=== PATIENT | female | born 1990 | race Caucasian/White ===

== ENCOUNTER 2019-06-22 11:55 | Inpatient (IN) | payer MEDICAID, OTHER ==
[2019-06-22] MEDS ORDERED: Misoprostol 400 MCG (4 X 100 MCG TAB) RECTAL PRN (12:53)
[2019-06-22] MEDS ORDERED: Lidocaine 1% 30 ML SDV INJECT PRN (12:53)
[2019-06-22] MEDS ORDERED: Carboprost Tromethamine 250 MCG/1 ML Amp IM PRN (12:53)
[2019-06-22] MEDS ORDERED: Lactated Ringers 1,000 ML IV ONE (12:53)
[2019-06-22] MEDS ORDERED: Methylergonovine 0.2 MG/1 ML Amp IM PRN (12:53)
[2019-06-22] MEDS ORDERED: Tranexamic Acid 1,000 MG in Sodium Chloride 0.9% 100 ML IV PRN (12:53)
[2019-06-22] MEDS ORDERED: Sodium Chloride 0.9% 10 ML Syringe FLUSH PRN (12:53)
[2019-06-22] MEDS ORDERED: Ondansetron 4 MG/2 ML SDV IVPUSH PRN (12:53)
--- NOTE | 2019-06-22 13:03 | PCM.LDHP ---
L&D History of Present Illness - General Date of Service: 06/22/19 (Admit) Admit Problem/Dx: Patient Status Order with Admit Dx/Problem 06/22/19 12:53 Patient Status [ADT] Routine Admission Diagnosis/Problem Admission Diagnosis/Problem Labor established Source of Information: Patient, Old Records, Significant Other History Limitations: Reports: No Limitations - History of Present Illness Introduction:: Maggie is 28yo with very late OB care with first visit in third trimester. She is term and approx 40w5d by best estimate. First visit at approx 34 weeks. initial US at that time showed limb measurements lagging behind head and abdomen by 5-6 weeks, confirmed by MFM consult, etiology unclear, and making due date difficult to determine accurately. follow up growth US 3 weeks later showed same. risks and dx during this include: B+ blood type, Hx PP hemorrhage, Hx vacuum assisted delivery, smoker, UTI during , rubella non-immune, anemia, hypothyroidism not treated until third trimester, Hx RAD, short limbs as noted, late care, concern re: possible substance use though UDS done at our facility were negative. see EPIC notes, episode, problem list and notes for details. hmb Timing/Duration: Reports: minutes: (2-4), getting worse Location, : Reports: Uterus Severity: Moderate - Related Data Allergies/Adverse Reactions: Allergies Allergy/AdvReac Type Severity Reaction Status Date / Time No Known Allergies Allergy Verified 06/22/19 13:00 Home Medications: Home Meds Acetaminophen [Tylenol] 650 mg PO Q4H PRN #30 tablet 04/04/13 [Rx] Ferrous Sulfate 325 mg PO BIDM #60 tablet 04/04/13 [Rx] Vit with Ca/FA/Iron [ Plus Iron] 1 each PO DAILY 365 Days tablet 04/04/13 [Rx] Past Medical History HEENT History: Reports: None Cardiovascular History: Reports: None Respiratory History: Reports: None, Other (See Below) (noted hx of RAD in EPIC chart.) Gastrointestinal History: Reports: None Genitourinary History: Reports: UTI, Recurrent, Other (See Below) Other Genitourinary History: BV COBOL DEVELOPER History: Reports: : 2 Para: 1 LMP (Approximate): Other OB/BYN History: prior hemorrhage, VAVD Musculoskeletal History: Reports: None Neurological History: Reports: None Psychiatric History: Reports: Other (See Below) Other Psychiatric History: hx cutting, hx THC use Endocrine/Metabolic History: Reports: Hypothyroidism Hematologic History: Reports: Anemia Immunologic History: Reports: None Oncologic (Cancer) History: Reports: None Dermatologic History: Reports: None - Infectious Disease History Infectious Disease History: Reports: None - Past Surgical History Head Surgeries/Procedures: Reports: None Social & Family History - Family History Family Medical History: Noncontributory - Tobacco Use Smoking Status *Q: Light Tobacco Smoker Years of Tobacco use: 10 Packs/Tins Daily: 0.5 - Caffeine Use Caffeine Use: Reports: Coffee - Recreational Drug Use Recreational Drug Use: No - Living Situation & Occupation Living situation: Reports: with Significant Other Social History Comment: significant other is Kamaljit Lambert/SHAWN. He has 6 other children, not with her. H&P Review of Systems - Review of Systems: Review Of Systems: Comprehensive ROS is negative, except as noted in HPI. L&D Exam - Exam Exam: See Below - Vital Signs Vital Signs: as noted on graphic in [employer]/WNL Weight: 227 lb (clinic this week) - OB Specific Contraction Frequency (min): 2-4 Contraction Intensity: Moderate Heart Rate (FHR) Variability: Moderate (6-25 bmp) Presentation: Left Occiput Anterior (NAILA) - Gregorio Score Gregorio Score Cervix Position: Posterior Gregorio Score Consistency: Soft Gregorio Score Effacement: 51-70% Gregorio Score Dilation: 3-4 cm Gregorio Score Infant's Station: -2 Gregorio Score Total: 7 - Exam General: Alert, Oriented HEENT: Conjunctiva Clear, EOMI, Hearing Intact, Mucosa Moist & [place], Nares Patent, PERRLA Neck: Supple, Trachea Midline Lungs: Clear to Auscultation, Normal Respiratory Effort Cardiovascular: Regular Rate, Regular Rhythm GI/Abdominal Exam: Normal Bowel Sounds, Soft, Non-Tender Rectal Exam: Normal Exam Genitourinary: Normal external exam, Normal bimanual exam, Cervical fluid ( clear with AROM) Back Exam: Normal Inspection, Full Range of Motion Extremities: Normal Inspection, Normal Range of Motion, Non-Tender, No Pedal Edema, Normal Capillary Refill Skin: Warm, Dry, Intact Neurological: Normal Speech Psychiatric: Alert, Normal Affect, Normal Mood - Patient Data Lab Results Last 24 hrs: COVID rapid screen negative UDS +THC Result Diagrams: 06/22/19 15:28 - Problem List (1) Term SNOMED Code(s): 25851199 ICD Code: Z34.90 - ENCNTR FOR SUPRVSN OF NORMAL , UNSP, UNSP TRIMESTER Status: Acute Current Visit: Yes (2) High risk , antepartum SNOMED Code(s): 45134492 ICD Code: O09.90 - SUPERVISION OF HIGH RISK , UNSP, UNSP TRIMESTER Status: Acute Current Visit: Yes (3) , high-risk, obstetrical care insufficient SNOMED Code(s): 2599715064306 ICD Code: O09.30 - SUPRVSN OF PREG W INSUFFICIENT ANTENAT CARE, UNSP TRIMESTER Status: Acute Current Visit: Yes (4) Blood type B+ SNOMED Code(s): 767912557 ICD Code: Z67.20 - TYPE B BLOOD, RH POSITIVE Status: Acute Current Visit : Yes (5) Late care affecting in third trimester SNOMED Code(s): 108102736, 127990378, 953037205 ICD Code: O09.33 - SUPRVSN OF PREG W INSUFFICIENT ANTENAT CARE, THIRD TRIMESTER Status: Acute Current Visit: Yes (6) abnormality suspected, antepartum condition SNOMED Code(s): 243962882, 721763067, 545558114 ICD Code: O35.9XX0 - MATERNAL CARE FOR ABNORMALITY AND DAMAGE, UNSP, UNSP Status: Acute Current Visit: Yes (7) Hypothyroid in , antepartum SNOMED Code(s): 193488404 ICD Code: O99.280 - ENDO, NUTRITIONAL AND METAB DISEASES COMP PREG, UNSP TRI ; E03.9 - HYPOTHYROIDISM, UNSPECIFIED Status: Acute Current Visit: Yes (8) History of hemorrhage, currently SNOMED Code(s): 832744919, 943538750 ICD Code: O09.299 - SUPRVSN OF PREG W POOR REPRODCTV OR OBSTET HISTORY, UNSP TRI Status: Acute Current Visit: Yes (9) H/O delivery by vacuum extraction, currently SNOMED Code(s): 687248341, 093423600 ICD Code: O09.299 - SUPRVSN OF PREG W POOR REPRODCTV OR OBSTET HISTORY, UNSP TRI Status: Acute Current Visit: Yes (10) Anemia of SNOMED Code(s): 63900387 ICD Code: O99.019 - ANEMIA COMPLICATING , UNSPECIFIED TRIMESTER Status: Acute Current Visit: No Problem Details: Hgb 10.1 on admission. (11) Rubella non-immune SNOMED Code(s): 397466001 ICD Code: Z78.9 - OTHER SPECIFIED HEALTH STATUS Status: Acute Current Visit: No (12) Smoker SNOMED Code(s): 60986129 ICD Code: F17.200 - NICOTINE DEPENDENCE, UNSPECIFIED, UNCOMPLICATED Status : Acute Current Visit: No (13) Unplanned SNOMED Code(s): 13727497 ICD Code: Z33.1 - STATE, INCIDENTAL Status: Acute Current Visit : No Problem List Initiated/Reviewed/Updated: Yes Orders Last 24hrs: Active Orders 24 hr Category Date Time Status Patient Status [ADT] Routine ADT 06/22/19 12:53 Ordered Communication Order [RC] ASDIRECTED Care 06/22/19 12:53 Ordered Heart Tones [RC] PER UNIT ROUTINE Care 06/22/19 12:53 Ordered Non Stress Test [RC] PER UNIT ROUTINE Care 06/22/19 12:55 Ordered Notify Provider Vital Signs OB [RC] ASDIRECTED Care 06/22/19 12:53 Ordered Notify Provider [RC] PRN Care 06/22/19 12:53 Ordered Pump Management, Intrathecal [RC] ASDIRECTED Care 06/22/19 12:55 Ordered Up ad [place] [RC] ASDIRECTED Care 06/22/19 12:53 Ordered Vital Signs [RC] PER UNIT ROUTINE Care 06/22/19 12:53 Ordered CBC W/O DIFF,HEMOGRAM [HEME] Routine Lab 06/22/19 12:53 Ordered CORONAVIRUS COVID-19 RAPID PCR [MOLEC] Stat Lab 06/22/19 12:15 Received Acetaminophen [Tylenol] Med 06/22/19 12:53 Ordered 650 mg PO Q4H PRN Carboprost Tromethamine [Hemabate DS] Med 06/22/19 12:53 Ordered 250 mcg IM ASDIRECTED PRN Lactated Ringers @ 125 MLS/HR(1000ml) Med 06/22/19 13:00 Ordered Lactated Ringers [Ringers, Lactated] 1,000 ml IV ASDIRECTED Lactated Ringers [Ringers, Lactated] 1,000 ml Med 06/22/19 12:53 Ordered IV BOLUS Lidocaine 1% [Xylocaine-MPF 1%] Med 06/22/19 12:53 Ordered 30 ml INJECT ASDIRECTED PRN Methylergonovine [Methergine] Med 06/22/19 12:53 Ordered 0.2 mg IM ASDIRECTED PRN Ondansetron [Zofran] Med 06/22/19 12:53 Ordered 4 mg IVPUSH Q4H PRN Oxytocin 30 Units in NS @ 2 MUNITS/MIN(500ml) Med 06/22/19 13:00 Ordered Oxytocin/Normal Saline [Pitocin in NS 30 UNIT/500 ML] 30 unit in 500 ml IV TITRATE Sodium Chloride 0.9% [Saline Flush] Med 06/22/19 12:53 Ordered 10 ml FLUSH ASDIRECTED PRN Tranexamic Acid [Cyklokapron] 1,000 mg Med 06/22/19 12:53 Ordered Sodium Chloride 0.9% [Normal Saline] 100 ml IV ONETIME miSOPROStoL [Cytotec] Med 06/22/19 12:53 Ordered 800 mcg RECTAL ASDIRECTED PRN Saline Lock Insert [OM.PC] Routine Oth 06/22/19 12:53 Ordered Resuscitation Status Routine Resus Stat 06/22/19 12:53 Ordered Medication Orders Acetaminophen (Tylenol) 650 mg PO Q4H PRN PRN Reason: Pain (Mild 1-3) and fever Carboprost Tromethamine (Hemabate Ds) 250 mcg IM ASDIRECTED PRN PRN Reason: HEMORRHAGE Lactated Ringer's (Ringers, Lactated) 1,000 mls @ 500 mls/hr IV BOLUS ONE Stop: 06/22/19 14:52 Lactated Ringer's (Ringers, Lactated) 1,000 mls @ 125 mls/hr IV ASDIRECTED LUZ MARINA Oxytocin/Sodium Chloride (Pitocin In Ns 30 Unit/500 Ml) 30 unit in 500 mls @ 2 mls/hr IV TITRATE LUZ MARINA; Protocol Tranexamic Acid 1,000 mg/ (Sodium Chloride) 110 mls @ 660 mls/hr IV ONETIME PRN PRN Reason: Bleeding Lidocaine HCl (Xylocaine-Mpf 1%) 30 ml INJECT ASDIRECTED PRN PRN Reason: Perineal Repair Methylergonovine Maleate (Methergine) 0.2 mg IM ASDIRECTED PRN PRN Reason: Hemorrhage Misoprostol (Cytotec) 800 mcg RECTAL ASDIRECTED PRN PRN Reason: Hemorrhage Ondansetron HCl (Zofran) 4 mg IVPUSH Q4H PRN PRN Reason: Nausea/Vomiting Sodium Chloride (Saline Flush) 10 ml FLUSH ASDIRECTED PRN PRN Reason: Keep Vein Open Assessment/Plan Comment:: Assessment" 28yo @ 40w5d by late dates contractions/labor high risk late and insufficient care suspect abnormality (short limbs confirmed by MFM) etiology unclear Hx PPH Hx VAVD smoker, concern re: possible substance use antenatally Blood type B+ rubella non-immune maternal anemia Hypothryoidism, untreated until third trimester distant Hx RAD ASCUS +HPV---needs colpo as did not have during due to late care. NST reactive. early labor Plan: admit with routine orders rapid COVID testing CBC continue to monitor. consider AROM when able. further management pending her clinical course is labor. UDS. cord/mec testing for baby. hmb Addendum: Hgb 10.1, COVID negative, UDS +THC hmb
[2019-06-22] MEDS: Lactated Ringers 1,000 ML IV SCH ×2 (17:31→20:46)
[2019-06-22] MEDS: Oxytocin/Normal Saline 30 UNIT/500 ML BAG IV SCH (17:32)
[2019-06-22] MEDS ORDERED: Sodium Chloride 0.9% 10 ML Syringe ONE (20:42)
[2019-06-22] MEDS ORDERED: EPINEPHrine 1 MG/1 ML Amp ONE ×2 (20:42)
--- NOTE | 2019-06-22 21:05 | PCM.PREANE ---
Preanesthetic Assessment - Procedure Proposed Procedure: Intrathecal injection for labor analgesia - Anesthesia/Transfusion/Family Hx Anesthesia History: Prior Anesthesia Without Reaction Family History of Anesthesia Reaction: No Transfusion History: No Prior Transfusion(s) - Physical Assessment NPO Status Date: 06/22/19 NPO Status Time: 10:00 Vital Signs: Last Vital Signs Temp 98.4 F 06/22/19 19:30 Pulse 90 06/22/19 20:15 Resp 20 06/22/19 18:24 BP 110/77 06/22/19 20:15 Pulse Ox Height: 5 ft 6 in Weight: 227 lb (clinic this week) ASA Class: 2E Airway Class: Mallampati = 2 ( IUP) - Lab Values: Laboratory Last Values WBC 14.2 10^3/uL (5.0-10.0) H 06/22/19 15:28 RBC 3.62 10^6/uL (4.2-5.4) L 06/22/19 15:28 Hgb 10.1 g/dL (12.0-16.0) L D 06/22/19 15:28 Hct 32.0 % (37.0-47.0) L 06/22/19 15:28 MCV 88.4 fL (80-100) D 06/22/19 15:28 MCH 27.9 pg (27.0-34.0) 06/22/19 15:28 MCHC 31.6 g/dL (33.0-35.0) L 06/22/19 15:28 Plt Count 230 10^3/uL (150-450) 06/22/19 15:28 Urine Opiates Screen Negative (NEGATIVE) 06/22/19 15:59 Ur Oxycodone Screen Negative (NEGATIVE) 06/22/19 15:59 Urine Methadone Screen Negative (NEGATIVE) 06/22/19 15:59 Ur Barbiturates Screen Negative (NEGATIVE) 06/22/19 15:59 U Tricyclic Antidepress Negative (NEGATIVE) 06/22/19 15:59 Ur Phencyclidine Scrn Negative (NEGATIVE) 06/22/19 15:59 Ur Amphetamine Screen Negative (NEGATIVE) 06/22/19 15:59 U Methamphetamines Scrn Negative (NEGATIVE) 06/22/19 15:59 Urine MDMA Screen Negative (NEGATIVE) 06/22/19 15:59 U Benzodiazepines Scrn Negative (NEGATIVE) 06/22/19 15:59 Urine Cocaine Screen Negative (NEGATIVE) 06/22/19 15:59 U Marijuana (THC) Screen Positive (NEGATIVE) H 06/22/19 15:59 SARS-CoV-2 RNA (RT-PCR) Negative (NEGATIVE) 06/22/19 12:15 - Allergies Allergies/Adverse Reactions: Allergies Allergy/AdvReac Type Severity Reaction Status Date / Time No Known Allergies Allergy Verified 06/22/19 13:00 PreAnesthesia Questionnaire HEENT History: Reports: None Cardiovascular History: Reports: None Respiratory History: Reports: None, Other (See Below) (noted hx of RAD in EPIC chart.) Gastrointestinal History: Reports: None Genitourinary History: Reports: UTI, Recurrent, Other (See Below) Other Genitourinary History: BV DAYCARE PROVIDER History: Reports: Other OB/BYN History: prior hemorrhage, VAVD Musculoskeletal History: Reports: None Neurological History: Reports: None Psychiatric History: Reports: Other (See Below) Other Psychiatric History: hx cutting, hx THC use Endocrine/Metabolic History: Reports: Hypothyroidism Hematologic History: Reports: Anemia Immunologic History: Reports: None Oncologic (Cancer) History: Reports: None Dermatologic History: Reports: None - Infectious Disease History Infectious Disease History: Reports: None - Past Surgical History Head Surgeries/Procedures: Reports: None - SUBSTANCE USE Smoking Status *Q: Light Tobacco Smoker Tobacco Use Within Last Twelve Months: Cigarettes Recreational Drug Use History: No - HOME MEDS Home Medications: Home Meds Acetaminophen [Tylenol] 650 mg PO Q4H PRN #30 tablet 04/04/13 [Rx] Ferrous Sulfate 325 mg PO BIDM #60 tablet 04/04/13 [Rx] Vit with Ca/FA/Iron [ Plus Iron] 1 each PO DAILY 365 Days tablet 04/04/13 [Rx] - CURRENT (IN HOUSE) MEDS Current Meds: Current Medications Acetaminophen (Tylenol) 650 mg PO Q4H PRN PRN Reason: Pain (Mild 1-3) and fever Carboprost Tromethamine (Hemabate Ds) 250 mcg IM ASDIRECTED PRN PRN Reason: HEMORRHAGE Lactated Ringer's (Ringers, Lactated) 1,000 mls @ 125 mls/hr IV ASDIRECTED LUZ MARINA Last Admin: 06/22/19 20:46 Dose: 125 mls/hr Oxytocin/Sodium Chloride (Pitocin In Ns 30 Unit/500 Ml) 30 unit in 500 mls @ 2 mls/hr IV TITRATE LUZ MARINA; Protocol Last Titration: 06/22/19 20:20 Dose: 12 munits/min, 12 mls/hr Tranexamic Acid 1,000 mg/ (Sodium Chloride) 110 mls @ 660 mls/hr IV ONETIME PRN PRN Reason: Bleeding Lidocaine HCl (Xylocaine-Mpf 1%) 30 ml INJECT ASDIRECTED PRN PRN Reason: Perineal Repair Methylergonovine Maleate (Methergine) 0.2 mg IM ASDIRECTED PRN PRN Reason: Hemorrhage Misoprostol (Cytotec) 800 mcg RECTAL ASDIRECTED PRN PRN Reason: Hemorrhage Ondansetron HCl (Zofran) 4 mg IVPUSH Q4H PRN PRN Reason: Nausea/Vomiting Last Admin: 06/22/19 20:28 Dose: 4 mg Sodium Chloride (Saline Flush) 10 ml FLUSH ASDIRECTED PRN PRN Reason: Keep Vein Open Discontinued Medications Epinephrine HCl (Adrenalin) Confirm Administered Dose 1 mg .ROUTE .STK-MED ONE Stop: 06/22/19 20:43 Lactated Ringer's (Ringers, Lactated) 1,000 mls @ 500 mls/hr IV BOLUS ONE Stop: 06/22/19 14:52 Sufentanil Citrate (Sufenta) Confirm Administered Dose 50 mcg .ROUTE .STK-MED ONE Stop: 06/22/19 20:42
--- NOTE | 2019-06-22 21:10 | PCM.PRNOTE ---
- Free Text/Narrative Note: IT injection. Pt id. Chart reviewed. Pre anesthesia eval completed. Sitting position. VSS standard prep and drape with betadine. Lidocaine 1% skin wheal. L3/4 24ga. +csf - heme - parathesia 0.75% marcaine 0.8mL 20mcg sufenta 0.1 mL epi 0.6mL 0.9% NS Patient tolerated well. All needles accounted for. VS (post) 141/94 HR 101 FHR 122 In room 2044. Time out 2047 Procedure complete 2055
[2019-06-23] MEDS ORDERED: Benzocaine/Menthol 20%-0.5% Spray 56 GM Canister TOP PRN (01:03)
[2019-06-23] MEDS ORDERED: Simethicone 80 MG Tab.Chew PO PRN (01:03)
[2019-06-23] MEDS ORDERED: Zolpidem 5 MG Tab PO PRN (01:03)
[2019-06-23] MEDS ORDERED: Measles, Mumps & Rubella Vaccine 0.5 ML SDV SUBCUT ONE (01:03)
[2019-06-23] MEDS: Oxytocin/Normal Saline 30 UNIT/500 ML BAG IV SCH (01:16)
--- NOTE | 2019-06-23 01:52 | PCM.DEL ---
L & D Note - General Info Date of Service: 06/23/19 (Time of delivery: 0029) Mother's Due Date: 06/17/19 (40w6d) - Delivery Note Labor: Spontaneous Delivery Outcome: Livebirth Delivery Method: Spontaneous Vaginal Delivery-Single Delivery Mode: Spontaneous Presentation: Left Occiput Anterior (NAILA) Nuchal Cord: None (cord at neck, but not wrapped around it) Prep: Povidone-Iodine (Betadine Anesthesia Type: Intrathecal Amniotic Fluid Description: Clear Episiotomy Type: None Laceration: 2nd Degree Suture type: Vicryl Suture size: 2-0 Placenta: Intact, Expressed Cord: 3 Vessels Estimated Blood Loss: 375 Resuscitation Needed: No [place]: Bulb Syringe, Stimulated, Warmed Provider: Valentina Javier Score 1 min: 7 Score 5 min: 9 Second Stage Interventions: Reports: Encouragement Given, Pushing Effectively, Pushing, Pulls Own Legs Back Delivery Comments (Free Text/Narrative):: 28yo @ term presented in labor and was admitted after evaluation. Pitocin augmentation used. AROM with return of large amount clear fluid. Intrathecal placed. Progressed on to complete dilation with just a swollen anterior rim remaining. She was able to easily push past this, and was set up for delivery. Catheter placed by me with return of 100cc clear urine, then removed. She was able to bring the baby's head down well and delivered in NAILA position with posterior hand noted, and cord anterior neck but not wrapped around the neck. Anterior shoulder released with Emi position and pulling down and maneuvering baby's shoulder by me without difficulty, and the body easily followed. Baby boy was dried and stimulated, suctioned and had strong cry. Placed on mom's chest. The cord was noted to have a loose true knot in it , documented photographically by staff. Doubly clamped, then cut by FOB. 3VC. Cord blood sample obtained. Cord segment obtained for analysis and sent to lab. placenta delivered with expression and was examined and found to be complete/ intact. rapid flow of bright red blood from vagina noted. This responded well to bimanual massage, pitocin infusion, and methergine IM. EBL 375ml. fundus now firm. perineum with posterior 2nd degree laceration repaired easily in standard fashion with 2-0 vicryl. patient tolerated well. there were no complications. Baby remained on mother's chest for skin to skin contact and bonding. APGARs 7 & 9 BW 3690g / 8lb 2oz Both mom and baby doing well. will follow and nursery routine orders and cares. hmb Induction Criteria - Gregorio Score Gregorio Score Dilation: 3-4 cm Gregorio Score Effacement: 60-70% Gregorio Score Infant's Station: -1 ,0 Gregorio Score Consistency: Soft Gregorio Score Cervix Position: Midposition Gregorio Score Total: 9 Gregorio Score Presenting Part: Reports: Cephalic - Induction Gestational Age >/= 39 wks: Yes Estimated Pelvis: Reports: Adequate Reassuring Monitoring Strip: Yes Absence of Tachy Systole: Yes - Augmentation Estimated Pelvis: Reports: Adequate Weight Estimated:: Reports: AGA Reassuring Monitoring Strip: Yes Absence of Tachy Systole: Yes - General Info Date of Service: 06/23/19 - Patient Data Vitals - Most Recent: Last Vital Signs Temp 98.0 F 06/22/19 23:30 Pulse 75 06/22/19 23:45 Resp 16 06/22/19 21:45 BP 110/57 L 06/22/19 23:45 Pulse Ox 97 06/22/19 21:30 Weight - Most Recent: 227 lb (clinic this week) Lab Results Last 24 Hours: Laboratory Results - last 24 hr 06/22/19 06/22/19 06/22/19 Range/Units 12:15 15:28 15:59 WBC 14.2 H (5.0-10.0) 10^3/uL RBC 3.62 L (4.2-5.4) 10^6/uL Hgb 10.1 L D (12.0-16.0) g/dL Hct 32.0 L (37.0-47.0) % MCV 88.4 D (80-100) fL MCH 27.9 (27.0-34.0) pg MCHC 31.6 L (33.0-35.0) g/dL Plt Count 230 (150-450) 10^3/uL Urine Opiates Screen Negative (NEGATIVE) Ur Oxycodone Screen Negative (NEGATIVE) Urine Methadone Screen Negative (NEGATIVE) Ur Barbiturates Screen Negative (NEGATIVE) U Tricyclic Antidepress Negative (NEGATIVE) Ur Phencyclidine Scrn Negative (NEGATIVE) Ur Amphetamine Screen Negative (NEGATIVE) U Methamphetamines Scrn Negative (NEGATIVE) Urine MDMA Screen Negative (NEGATIVE) U Benzodiazepines Scrn Negative (NEGATIVE) Urine Cocaine Screen Negative (NEGATIVE) U Marijuana (THC) Screen Positive H (NEGATIVE) SARS-CoV-2 RNA (RT-PCR) Negative (NEGATIVE) Med Orders - Current: Current Medications Acetaminophen (Tylenol) 650 mg PO Q4H PRN PRN Reason: Pain (Mild 1-3) and fever Benzocaine/Menthol (Dermoplast Pain Relief [place]) 0 gm TOP Q4H PRN PRN Reason: Perineal comfort measures Carboprost Tromethamine (Hemabate Ds) 250 mcg IM ASDIRECTED PRN PRN Reason: HEMORRHAGE Docusate Sodium (Colace) 100 mg PO BID PRN PRN Reason: Constipation Lactated Ringer's (Ringers, Lactated) 1,000 mls @ 125 mls/hr IV ASDIRECTED LUZ MARINA Last Infusion: 06/23/19 01:16 Dose: 25 mls/hr Oxytocin/Sodium Chloride (Pitocin In Ns 30 Unit/500 Ml) 30 unit in 500 mls @ 2 mls/hr IV TITRATE LUZ MARINA; Protocol Last Admin: 06/23/19 01:16 Dose: 250 munits/min, 250 mls/hr Tranexamic Acid 1,000 mg/ (Sodium Chloride) 110 mls @ 660 mls/hr IV ONETIME PRN PRN Reason: Bleeding Ibuprofen (Motrin) 800 mg PO Q8H PRN PRN Reason: Mild Pain or Fever Lidocaine HCl (Xylocaine-Mpf 1%) 30 ml INJECT ASDIRECTED PRN PRN Reason: Perineal Repair Last Admin: 06/23/19 00:45 Dose: 30 ml Methylergonovine Maleate (Methergine) 0.2 mg IM ASDIRECTED PRN PRN Reason: Hemorrhage Last Admin: 06/23/19 00:43 Dose: 0.2 mg Misoprostol (Cytotec) 800 mcg RECTAL ASDIRECTED PRN PRN Reason: Hemorrhage Ondansetron HCl (Zofran) 4 mg IVPUSH Q4H PRN PRN Reason: Nausea/Vomiting Last Admin: 06/22/19 20:28 Dose: 4 mg Prenat Multivit/[place]/Iron/Folic Ac ( Plus Iron) 1 each PO DAILY LUZ MARINA Simethicone (Simethicone) 80 mg PO Q4H PRN PRN Reason: Gas Sodium Chloride (Saline Flush) 10 ml FLUSH ASDIRECTED PRN PRN Reason: Keep Vein Open Witch Cindy (Medi-Pads) 1 each TOP Q4HR PRN PRN Reason: Perineal Comfort Measure Zolpidem Tartrate (Ambien) 5 mg PO BEDTIME PRN PRN Reason: Insomnia Discontinued Medications Epinephrine HCl (Adrenalin) Confirm Administered Dose 1 mg .ROUTE .STK-MED ONE Stop: 06/22/19 20:43 Last Admin: 06/22/19 22:58 Dose: Not Given Lactated Ringer's (Ringers, Lactated) 1,000 mls @ 500 mls/hr IV BOLUS ONE Stop: 06/22/19 14:52 Last Admin: 06/22/19 22:58 Dose: Not Given Measles/Mumps/Rubella Vaccine Live (M-M-R Ii Vaccine) 0.5 ml SUBCUT .ONCE ONE Stop: 06/23/19 01:04 Sufentanil Citrate (Sufenta) Confirm Administered Dose 50 mcg .ROUTE .STK-MED ONE Stop: 06/22/19 20:42 Last Admin: 06/22/19 22:57 Dose: Not Given - Problem List & Annotations (1) Term SNOMED Code(s): 40147642 Code(s): Z34.90 - ENCNTR FOR SUPRVSN OF NORMAL , UNSP, UNSP TRIMESTER Status: Acute Current Visit: Yes (2) High risk , antepartum SNOMED Code(s): 34172719 Code(s): O09.90 - SUPERVISION OF HIGH RISK , UNSP, UNSP TRIMESTER Status: Acute Current Visit: Yes (3) , high-risk, obstetrical care insufficient SNOMED Code(s): 2688387741735 Code(s): O09.30 - SUPRVSN OF PREG W INSUFFICIENT ANTENAT CARE, UNSP TRIMESTER Status: Acute Current Visit: Yes (4) Blood type B+ SNOMED Code(s): 601624017 Code(s): Z67.20 - TYPE B BLOOD, RH POSITIVE Status: Acute Current Visit: Yes (5) Late care affecting in third trimester SNOMED Code(s): 183496423, 101159278, 355770533 Code(s): O09.33 - SUPRVSN OF PREG W INSUFFICIENT ANTENAT CARE, THIRD TRIMESTER Status: Acute Current Visit: Yes (6) abnormality suspected, antepartum condition SNOMED Code(s): 061477836, 879326924, 835016140 Code(s): O35.9XX0 - MATERNAL CARE FOR ABNORMALITY AND DAMAGE, UNSP, UNSP Status: Acute Current Visit: Yes (7) Hypothyroid in , antepartum SNOMED Code(s): 192680946 Code(s): O99.280 - ENDO, NUTRITIONAL AND METAB DISEASES COMP PREG, UNSP TRI; E03.9 - HYPOTHYROIDISM, UNSPECIFIED Status: Acute Current Visit: Yes (8) History of hemorrhage, currently SNOMED Code(s): 868040711, 383816972 Code(s): O09.299 - SUPRVSN OF PREG W POOR REPRODCTV OR OBSTET HISTORY, UNSP TRI Status: Acute Current Visit: Yes (9) H/O delivery by vacuum extraction, currently SNOMED Code(s): 553011222, 685273777 Code(s): O09.299 - SUPRVSN OF PREG W POOR REPRODCTV OR OBSTET HISTORY, UNSP TRI Status: Acute Current Visit: Yes (10) Anemia of SNOMED Code(s): 85317257 Code(s): O99.019 - ANEMIA COMPLICATING , UNSPECIFIED TRIMESTER Status: Acute Current Visit: No Annotation/Comment:: Hgb 10.1 on admission. (11) Rubella non-immune SNOMED Code(s): 965541185 Code(s): Z78.9 - OTHER SPECIFIED HEALTH STATUS Status: Acute Current Visit: No (12) Smoker SNOMED Code(s): 34031605 Code(s): F17.200 - NICOTINE DEPENDENCE, UNSPECIFIED, UNCOMPLICATED Status: Acute Current Visit: No (13) Unplanned SNOMED Code(s): 77141445 Code(s): Z33.1 - STATE, INCIDENTAL Status: Acute Current Visit: No - Problem List Review Problem List Initiated/Reviewed/Updated: Yes - My Orders Last 24 Hours: My Active Orders 06/22/19 12:53 Patient Status [ADT] Routine Communication Order [RC] ASDIRECTED Notify Provider Vital Signs OB [RC] ASDIRECTED Notify Provider [RC] PRN Up ad [place] [RC] ASDIRECTED Vital Signs [RC] 08,20 Acetaminophen [Tylenol] 650 mg PO Q4H PRN Carboprost Tromethamine [Hemabate DS] 250 mcg IM ASDIRECTED PRN Lidocaine 1% [Xylocaine-MPF 1%] 30 ml INJECT ASDIRECTED PRN Methylergonovine [Methergine] 0.2 mg IM ASDIRECTED PRN Ondansetron [Zofran] 4 mg IVPUSH Q4H PRN Sodium Chloride 0.9% [Saline Flush] 10 ml FLUSH ASDIRECTED PRN Tranexamic Acid [Cyklokapron] 1,000 mg Sodium Chloride 0.9% [Normal Saline] 100 ml IV ONETIME miSOPROStoL [Cytotec] 800 mcg RECTAL ASDIRECTED PRN Saline Lock Insert [OM.PC] Routine Resuscitation Status Routine 06/22/19 12:55 Non Stress Test [RC] PER UNIT ROUTINE Pump Management, Intrathecal [RC] ASDIRECTED 06/22/19 13:00 Lactated Ringers [Ringers, Lactated] 1,000 ml IV ASDIRECTED Oxytocin/Normal Saline [Pitocin in NS 30 UNIT/500 ML] 30 unit in 500 ml IV TITRATE 06/23/19 01:03 Benzocaine/Menthol [Dermoplast Pain Relief [place]] See Dose Instructions TOP Q4H PRN Docusate Sodium [Colace] 100 mg PO BID PRN Ibuprofen [Motrin] 800 mg PO Q8H PRN Simethicone 80 mg PO Q4H PRN Zolpidem [Ambien] 5 mg PO BEDTIME PRN witch Cindy [Medi-Pads] 1 each TOP Q4HR PRN 06/23/19 01:04 Assess Lochia [WOMSER] Per Unit Routine Assess Uterine Involution [WOMSER] Per Unit Routine Breast Pump [WOMSER] Per Unit Routine Ice Therapy [OM.PC] Per Unit Routine Perineal Care [OM.PC] Per Unit Routine Sitz Bath [OM.PC] Per Unit Routine 06/23/19 01:08 Vaccines to be Administered [RC] PER UNIT ROUTINE 06/23/19 09:00 Vit with Ca/FA/Iron [ Plus Iron] 1 each PO DAILY 06/23/19 Breakfast Regular Diet [DIET] 04/27/20 Dinner Regular Diet [DIET] 06/23/19 Lunch Regular Diet [DIET] 06/25/19 05:11 CBC W/O DIFF,HEMOGRAM [HEME] AM - Plan Plan:: Assessment" 28yo @ 40w5d by late dates contractions/labor high risk late and insufficient care suspect abnormality (short limbs confirmed by MFM) etiology unclear Hx PPH Hx VAVD smoker, concern re: possible substance use antenatally Blood type B+ rubella non-immune maternal anemia Hypothryoidism, untreated until third trimester distant Hx RAD ASCUS +HPV---needs colpo as did not have during due to late care. NST reactive. early labor Plan: admit with routine orders rapid COVID testing CBC continue to monitor. consider AROM when able. further management pending her clinical course is labor. UDS. cord/mec testing for baby. hmb Addendum: Hgb 10.1, COVID negative, UDS +THC hmb Delivery: @ 0029 on 06-23-2019 viable male infant Zayvion APGARs 7 & 9 BW 3690g/ 8lb 2oz bottle feeding 18.25in long true knot in cord. posterior hand, anterior cord/not wrapped, facial bruising, NAILA social work nurse consult. EBL 375cc 2nd degree lac no complications. see notes. hmb
[2019-06-23] MEDS: Ibuprofen 800 MG Tab PO PRN ×3 (02:09→21:39)
[2019-06-23] MEDS: Docusate Sodium 100 MG Cap PO PRN ×2 (02:09→21:39)
[2019-06-23] MEDS: Acetaminophen 325 MG Tab PO PRN ×3 (02:09→21:40)
--- NOTE | 2019-06-23 06:36 | PCM48HPAN ---
Post Anesthesia Note - EVALUATION WITHIN 48HRS OF ANESTHETIC Patient Participated in Evaluation: Yes Respiratory Function Stable: Yes Airway Patent: Yes Cardiovascular Function Stable: Yes Hydration Status Stable: Yes Pain Control Satisfactory: Yes Nausea and Vomiting Control Satisfactory: Yes Mental Status Recovered: Yes Vital Signs: Last Vital Signs Temp 98.2 F 06/23/19 03:00 Pulse 84 06/23/19 04:00 Resp 16 06/23/19 04:00 BP 116/50 L 06/23/19 04:00 Pulse Ox 97 06/22/19 21:30 - COMMENTS/OBSERVATIONS Free Text/Narrative:: Post-delivery 0029 Apgars 7/9 No ARCs. Pain well-managed
[2019-06-23] MEDS: Prenatal Multivitamin with Calcium/Folic Acid/Iron Tab PO SCH (08:50)
[2019-06-24] MEDS: Prenatal Multivitamin with Calcium/Folic Acid/Iron Tab PO SCH (08:28)
[2019-06-24] MEDS: Docusate Sodium 100 MG Cap PO PRN (08:28)
[2019-06-24] MEDS: Ibuprofen 800 MG Tab PO PRN (08:28)
--- NOTE | 2019-06-24 11:12 | PCM.DCSUM1 ---
Discharge Summary - Hospital Course Diagnosis: Stroke: No - Discharge Data Discharge Date: 06/24/19 (DISCHARGE DAY) Discharge Disposition: Home, Self-Care 01 Condition: Good - Referral to Home Health Primary Care Physician: Valentina Javier MD - Discharge Diagnosis/Problem(s) (1) Term SNOMED Code(s): 22310580 ICD Code: Z34.90 - ENCNTR FOR SUPRVSN OF NORMAL , UNSP, UNSP TRIMESTER Status: Acute (2) High risk , antepartum SNOMED Code(s): 88636014 ICD Code: O09.90 - SUPERVISION OF HIGH RISK , UNSP, UNSP TRIMESTER Status: Acute (3) , high-risk, obstetrical care insufficient SNOMED Code(s): 0888927711029 ICD Code: O09.30 - SUPRVSN OF PREG W INSUFFICIENT ANTENAT CARE, UNSP TRIMESTER Status: Acute (4) Blood type B+ SNOMED Code(s): 347858987 ICD Code: Z67.20 - TYPE B BLOOD, RH POSITIVE Status: Acute (5) Late care affecting in third trimester SNOMED Code(s): 588379976, 246995086, 665175160 ICD Code: O09.33 - SUPRVSN OF PREG W INSUFFICIENT ANTENAT CARE, THIRD TRIMESTER Status: Acute (6) abnormality suspected, antepartum condition SNOMED Code(s): 376794830, 929435478, 049208148 ICD Code: O35.9XX0 - MATERNAL CARE FOR ABNORMALITY AND DAMAGE, UNSP, UNSP Status: Acute (7) Hypothyroid in , antepartum SNOMED Code(s): 473397584 ICD Code: O99.280 - ENDO, NUTRITIONAL AND METAB DISEASES COMP PREG, UNSP TRI ; E03.9 - HYPOTHYROIDISM, UNSPECIFIED Status: Acute (8) History of hemorrhage, currently SNOMED Code(s): 593626994, 541512010 ICD Code: O09.299 - SUPRVSN OF PREG W POOR REPRODCTV OR OBSTET HISTORY, UNSP TRI Status: Acute (9) H/O delivery by vacuum extraction, currently SNOMED Code(s): 921720348, 491662240 ICD Code: O09.299 - SUPRVSN OF PREG W POOR REPRODCTV OR OBSTET HISTORY, UNSP TRI Status: Acute (10) Anemia of SNOMED Code(s): 19980395 ICD Code: O99.019 - ANEMIA COMPLICATING , UNSPECIFIED TRIMESTER Status: Acute Problem Details: Hgb 10.1 on admission. (11) Rubella non-immune SNOMED Code(s): 901139853 ICD Code: Z78.9 - OTHER SPECIFIED HEALTH STATUS Status: Acute (12) Smoker SNOMED Code(s): 55151457 ICD Code: F17.200 - NICOTINE DEPENDENCE, UNSPECIFIED, UNCOMPLICATED Status : Acute (13) Unplanned SNOMED Code(s): 05931368 ICD Code: Z33.1 - STATE, INCIDENTAL Status: Acute - Discharge Plan Home Medications: Home Meds Acetaminophen [Tylenol] 650 mg PO Q4H PRN #30 tablet 04/04/13 [Rx] Ferrous Sulfate 325 mg PO BIDM #60 tablet 04/04/13 [Rx] Vit with Ca/FA/Iron [ Plus Iron] 1 each PO DAILY 365 Days tablet 04/04/13 [Rx] Patient Handouts: Care After Vaginal Delivery - Patient Data Vitals - Most Recent: Last Vital Signs Temp 98.3 F 06/24/19 08:00 Pulse 87 06/24/19 08:00 Resp 16 06/24/19 08:00 BP 119/68 06/24/19 08:00 Pulse Ox 100 06/24/19 08:00 Weight - Most Recent: 227 lb (clinic this week) Med Orders - Current: Current Medications Acetaminophen (Tylenol) 650 mg PO Q4H PRN PRN Reason: Pain (Mild 1-3) and fever Last Admin: 06/23/19 21:40 Dose: 650 mg Benzocaine/Menthol (Dermoplast Pain Relief [place]) 0 gm TOP Q4H PRN PRN Reason: Perineal comfort measures Carboprost Tromethamine (Hemabate Ds) 250 mcg IM ASDIRECTED PRN PRN Reason: HEMORRHAGE Docusate Sodium (Colace) 100 mg PO BID PRN PRN Reason: Constipation Last Admin: 06/24/19 08:28 Dose: 100 mg Lactated Ringer's (Ringers, Lactated) 1,000 mls @ 125 mls/hr IV ASDIRECTED LUZ MARINA Last Infusion: 06/23/19 04:30 Dose: 0 mls/hr Oxytocin/Sodium Chloride (Pitocin In Ns 30 Unit/500 Ml) 30 unit in 500 mls @ 2 mls/hr IV TITRATE LUZ MARINA; Protocol Last Titration: 06/23/19 04:30 Dose: 0 munits/min, 0 mls/hr Tranexamic Acid 1,000 mg/ (Sodium Chloride) 110 mls @ 660 mls/hr IV ONETIME PRN PRN Reason: Bleeding Ibuprofen (Motrin) 800 mg PO Q8H PRN PRN Reason: Mild Pain or Fever Last Admin: 06/24/19 08:28 Dose: 800 mg Lidocaine HCl (Xylocaine-Mpf 1%) 30 ml INJECT ASDIRECTED PRN PRN Reason: Perineal Repair Last Admin: 06/23/19 00:45 Dose: 30 ml Methylergonovine Maleate (Methergine) 0.2 mg IM ASDIRECTED PRN PRN Reason: Hemorrhage Last Admin: 06/23/19 00:43 Dose: 0.2 mg Misoprostol (Cytotec) 800 mcg RECTAL ASDIRECTED PRN PRN Reason: Hemorrhage Ondansetron HCl (Zofran) 4 mg IVPUSH Q4H PRN PRN Reason: Nausea/Vomiting Last Admin: 06/22/19 20:28 Dose: 4 mg Prenat Multivit/[place]/Iron/Folic Ac ( Plus Iron) 1 each PO DAILY LUZ MARINA Last Admin: 06/24/19 08:28 Dose: 1 each Simethicone (Simethicone) 80 mg PO Q4H PRN PRN Reason: Gas Sodium Chloride (Saline Flush) 10 ml FLUSH ASDIRECTED PRN PRN Reason: Keep Vein Open Witvanesa Calderonel (Medi-Pads) 1 each TOP Q4HR PRN PRN Reason: Perineal Comfort Measure Zolpidem Tartrate (Ambien) 5 mg PO BEDTIME PRN PRN Reason: Insomnia Discontinued Medications Epinephrine HCl (Adrenalin) Confirm Administered Dose 1 mg .ROUTE .STK-MED ONE Stop: 06/22/19 20:43 Last Admin: 06/22/19 22:58 Dose: Not Given Epinephrine HCl (Adrenalin) 1 mg .XX .STK-MED ONE Stop: 06/22/19 20:43 Lactated Ringer's (Ringers, Lactated) 1,000 mls @ 500 mls/hr IV BOLUS ONE Stop: 06/22/19 14:52 Last Admin: 06/22/19 22:58 Dose: Not Given Measles/Mumps/Rubella Vaccine Live (M-M-R Ii Vaccine) 0.5 ml SUBCUT .ONCE ONE Stop: 06/23/19 01:04 Last Admin: 06/23/19 02:11 Dose: 0.5 ml Sodium Chloride (Saline Flush) 10 ml .XX .STK-MED ONE Stop: 06/22/19 20:43 Sufentanil Citrate (Sufenta) Confirm Administered Dose 50 mcg .ROUTE .STK-MED ONE Stop: 06/22/19 20:42 Last Admin: 06/22/19 22:57 Dose: Not Given Sufentanil Citrate (Sufenta) 20 mcg ITHECAL .STK-MED ONE Stop: 06/22/19 20:43
== END 2019-06-24 14:40 | disposition home or self-care (01) | DRG 807 ==
LOC: DL.OBCHECK 11:55 → DL.OB 12:53 → OBSVTOIN 06-23 00:29
PROVIDERS: ADMIT Family Medicine; ATTEND Family Medicine
PROC: 10E0XZZ Delivery of Products of Conception, External Approach (ICD-10-PCS; principal; 2019-06-23)
PROC: 0KQM0ZZ Repair Perineum Muscle, Open Approach (ICD-10-PCS; 2019-06-23)
PROC: 10907ZC Drainage of Amniotic Fluid, Therapeutic from Products of Conception, Via Natural or Artificial Opening (ICD-10-PCS; 2019-06-23)
DX: O48.0 Post-term pregnancy (principal); O35.9XX0 Maternal care for (suspected) fetal abnormality and damage, unspecified, not applicable or unspecified; O99.284 Endocrine, nutritional and metabolic diseases complicating childbirth; O70.1 Second degree perineal laceration during delivery; O69.81X0 Labor and delivery complicated by cord around neck, without compression, not applicable or unspecified; O99.02 Anemia complicating childbirth; D64.9 Anemia, unspecified; O99.334 Smoking (tobacco) complicating childbirth; F17.210 Nicotine dependence, cigarettes, uncomplicated; E03.9 Hypothyroidism, unspecified; Z3A.40 40 weeks gestation of pregnancy; Z37.0 Single live birth; Z79.899 Other long term (current) drug therapy; Z67.20 Type B blood, Rh positive
CPT/HCPCS: 36415; 59025; 59409; 80305-QW; 85027; 90471; 90707; A9270-GY; J0171; J2001; J2210; J2405; J2590; J7120; U0002

== ENCOUNTER 2021-04-24 19:14 | Emergency (ER) | payer MEDICAID ==
[2021-04-24] MEDS: Ketorolac 30 MG/ML SDV IM ONE (21:49)
== END 2021-04-24 22:01 | disposition home or self-care (01) ==
LOC: DL.ED 19:14
DX: S59.911A Unspecified injury of right forearm, initial encounter (principal); Z72.0 Tobacco use; W55.82XA Struck by other mammals, initial encounter
CPT/HCPCS: 73090; 96372; 99283; J1885

== ENCOUNTER 2023-10-07 04:57 | Emergency (ER) | payer MEDICAID ==
[2023-10-07 05:27] LABS: HEMOGLOBIN 12.9 g/dL (12.0-16.0); MEAN CORPUSCULAR HGB CONC 31.5 g/dL (33.0-35.0); MEAN CORPUSCULAR VOLUME 89.1 fL (80-100); PLATELET COUNT,PLT 300 10^3/uL (150-450); WHITE BLOOD CELL COUNT,WBC 17.7 10^3/uL (5.0-10.0)
[2023-10-07 05:31] LABS: BASOPHILS PERCENT AUTO 0.2 % (0.0-1.0); EOSINOPHILS PERCENT AUTO 0.3 % (1.0-3.0); LYMPHOCYTES PERCENT AUTO 25.6 % (20.5-50.1); MONOCYTES PERCENT AUTO 6.9 % (2-8)
[2023-10-07 05:45] LABS: A/G RATIO 1.1; ALBUMIN 3.7 g/dL (3.4-5.0); ANION GAP 14.7 mEq/L (7-13); BILIRUBIN TOTAL 0.3 mg/dL (0.2-1.0); BUN/CREATININE RATIO 15.1 (No establ ref range); CREATININE 0.86 mg/dL (0.55-1.02); EST CRCL DRUG DOSING (CG) 88.73 mL/min; POTASSIUM,K 3.7 mmol/L (3.5-5.1); PROTEIN TOTAL,TP 7.2 g/dL (6.4-8.2)
[2023-10-07 05:48] LABS: LACTIC ACID 1.5 mmol/L (0.4-2.0)
[2023-10-07] MEDS: Ketorolac 30 MG/ML SDV IVPUSH ONE (05:50)
[2023-10-07 05:54] LABS: BAND PERCENT MAN 2 %; EOSINOPHILS PERCENT MAN 1 % (1-3); LYMPHOCYTES PERCENT MAN 27 % (20-50); MONOCYTES PERCENT MAN 3 % (2-8); SEG NEUTROPHILS PERCENT MAN 67 % (42-75)
[2023-10-07] MEDS: cefTRIAXone 1 GM Vial IVPUSH ONE ×2 (06:01→06:02)
[2023-10-07] MEDS: Iopamidol 612 MG/ML 100 ML Bottle IVPUSH ONE (06:04)
== END 2023-10-07 09:00 | disposition home or self-care (01) ==
LOC: DL.ED 04:57
DX: K04.7 Periapical abscess without sinus (principal); F17.210 Nicotine dependence, cigarettes, uncomplicated; Z79.899 Other long term (current) drug therapy
CPT/HCPCS: 36415; 70487; 80053; 83605; 84703; 85025; 87040; 96374; 96375; 99284; J0696; J1885; Q9967; 99282

== ENCOUNTER 2023-10-08 09:47 | Emergency (ER) | payer MEDICAID ==
[2023-10-08] MEDS: Sodium Chloride 0.9% 1,000 ML IV ONE (10:26)
[2023-10-08] MEDS: Sodium Chloride 0.9% 10 ML Syringe FLUSH PRN (10:26)
[2023-10-08 10:30] LABS: HEMOGLOBIN 13.1 g/dL (12.0-16.0); MEAN CORPUSCULAR HEMOGLOBIN 28.2 pg (27.0-34.0); MEAN CORPUSCULAR VOLUME 88.4 fL (80-100); PLATELET COUNT,PLT 263 10^3/uL (150-450); RED BLOOD CELL COUNT 4.64 10^6/uL (4.2-5.4); WHITE BLOOD CELL COUNT,WBC 19.8 10^3/uL (5.0-10.0)
[2023-10-08 10:36] LABS: BASOPHILS PERCENT AUTO 0.3 % (0.0-1.0); EOSINOPHILS PERCENT AUTO 0.3 % (1.0-3.0); MONOCYTES PERCENT AUTO 7.3 % (2-8); NEUTROPHILS PERCENT AUTO 70.1 % (42.2-75.2)
[2023-10-08 11:22] LABS: LYMPHOCYTES PERCENT MAN 23 % (20-50); MONOCYTES PERCENT MAN 5 % (2-8); SEG NEUTROPHILS PERCENT MAN 72 % (42-75)
[2023-10-08] MEDS: Piperacillin/Tazobactam 4.5 GM in Sodium Chloride 0.9% 100 ML IV ONE (11:30)
== END 2023-10-08 12:19 | disposition home or self-care (01) ==
LOC: DL.ED 09:47
DX: K04.7 Periapical abscess without sinus (principal)
CPT/HCPCS: 36415; 85025; 96361; 96365; 99282; 99283-25; J2543; J3490; J7030

== ENCOUNTER 2024-01-26 09:27 | Emergency (ER) | payer SELFPAY ==
[2024-01-26 09:48] LABS: APPEARANCE,URINE SLIGHTLY CLOUDY (CLEAR); BILIRUBIN,URINE NEGATIVE (NEGATIVE); COLOR,URINE YELLOW (YELLOW); GLUCOSE,URINE NEGATIVE (NEGATIVE); KETONES,URINE NEGATIVE (NEGATIVE); LEUKOCYTE ESTERASE,URINE MODERATE (NEGATIVE); NITRITE,URINE NEGATIVE (NEGATIVE); OCCULT BLOOD,URINE LARGE (NEGATIVE); PH,URINE 5.5 (5.0-9.0); PROTEIN,URINE TRACE (NEGATIVE); UROBILINOGEN,URINE 0.2 mg/dL (0.2-1.0)
[2024-01-26 10:00] LABS: BACTERIA,URINE MODERATE /HPF (0-FEW/HPF); EPITHELIAL CELLS,URINE FEW /HPF (NOT SEEN); RBC,URINE 30-40 /HPF (0-5); WBC,URINE PACKED /HPF (0-5/HPF)
[2024-01-26] MEDS: Phenazopyridine 95 MG Tab PO ONE (10:23)
[2024-01-26] MEDS: Cephalexin 500 MG Cap PO ONE (10:23)
== END 2024-01-26 10:25 | disposition home or self-care (01) ==
LOC: DL.ED 09:27
DX: N30.01 Acute cystitis with hematuria (principal); Z86.16 Personal history of COVID-19; F17.210 Nicotine dependence, cigarettes, uncomplicated; J45.909 Unspecified asthma, uncomplicated
CPT/HCPCS: 81001; 81025; 99284; A9270; 99283

== ENCOUNTER 2024-07-02 07:53 | Emergency (ER) | payer SELFPAY ==
[2024-07-02 08:19] LABS: BILIRUBIN,URINE NEGATIVE (NEGATIVE); GLUCOSE,URINE 100 (NEGATIVE); KETONES,URINE TRACE (NEGATIVE); LEUKOCYTE ESTERASE,URINE LARGE (NEGATIVE); NITRITE,URINE POSITIVE (NEGATIVE); OCCULT BLOOD,URINE LARGE (NEGATIVE); PH,URINE 5.5 (5.0-9.0); PROTEIN,URINE >=300 (NEGATIVE)
[2024-07-02 08:20] LABS: APPEARANCE,URINE TURBID (CLEAR); COLOR,URINE ORANGE (YELLOW)
[2024-07-02 08:28] LABS: WBC,URINE PACKED /HPF (0-5/HPF)
[2024-07-02 08:29] LABS: BACTERIA,URINE MODERATE /HPF (0-FEW/HPF); EPITHELIAL CELLS,URINE FEW /HPF (NOT SEEN); RBC,URINE 75-100 /HPF (0-5)
[2024-07-02] MEDS: Ketorolac 30 MG/ML SDV IVPUSH ONE (08:32)
[2024-07-03 11:46] LABS: C.TRACHOMATIS BY TMA Negative (Negative); N.GONORRHOEAE BY TMA Negative (Negative); SOURCE URINE
== END 2024-07-02 08:47 | disposition home or self-care (01) ==
LOC: DL.ED 07:53
DX: N30.90 Cystitis, unspecified without hematuria (principal); E03.9 Hypothyroidism, unspecified; J45.909 Unspecified asthma, uncomplicated; Z86.16 Personal history of COVID-19
CPT/HCPCS: 81001; 81025; 87086; 87491; 87591; 96374; 99283; J1885; 87088; 87186

== ENCOUNTER 2024-07-07 13:18 | Emergency (ER) | payer SELFPAY | END 2024-07-07 13:39 | disposition home or self-care (01) | LOC: DL.ED 13:18 | DX: N30.00 Acute cystitis without hematuria (principal); Z79.899 Other long term (current) drug therapy; Z86.16 Personal history of COVID-19 | CPT/HCPCS: 99283 ==